=== PATIENT | male | born 1965 | race African-American/Black ===

== ENCOUNTER 2023-04-24 23:29 | Emergency (ER) | payer OTHER ==
[~2023-04-24] VITALS: Ht 182.9 cm; Wt 68.2 kg
[2023-04-24 23:44] VITALS: BP 141/74; PULSE 83; RESP 16; TEMP 98.2; O2SAT 100
== END 2023-04-25 01:49 | disposition left against medical advice (07) ==
LOC: ER 23:29
DX: Z53.21 Procedure and treatment not carried out due to patient leaving prior to being seen by health care provider (principal)
CPT/HCPCS: 99281